=== PATIENT | female | born 1955 | race African-American/Black ===

== ENCOUNTER 2020-01-10 20:30 | Observation (INO) | payer BC, SELFPAY ==
--- NOTE | ~2020-01-10 | XR_ITS ---
EXAMINATION: XR chest 2V DATE: 01/10/2020 21:06 INDICATION: Chest pain TECHNIQUE: PA and lateral views of the chest are obtained. COMPARISON: 08/11/2018 FINDINGS: The lungs are free of acute opacities. There is no pleural effusion or pneumothorax. The ca rdiomediastinal silhouette is normal. There is mild thoracic spondylosis. IMPRESSION: 1. No acute cardiopulmonary abnormality. Reviewed, dictated and finalized at location A. TBAND PERFORATOR
--- NOTE | ~2020-01-10 | CT_ITS ---
EXAMINATION: CTA chest PE protocol DATE: 01/10/2020 21:34 INDICATION: Chest pain TECHNIQUE: Computed tomography angiography (CTA) of the chest was performed with 100 mL Omnipaque-350 intravenous contrast timed to evaluate the pulmonary arteries. Coronal maximum intensity projection 3D-reconstructions were created by the technologist. The dose-length product (DLP) was 775.83 mGy-cm. Automated exposure control and iterative reconstruction technique were employed. COMPARISON: None. FINDINGS: The pulmonary arteries are well-opacified. No pulmonary embolism is identified. There is e levation of the right hemidiaphragm. Mild dependent atelectasis is noted. There are no focal airspace opacities. No pneumothorax is identified. There is a trace left pleural effusion. No pathologically enlarged thoracic lymph nodes are identified. The heart size is normal. Calcified mediastinal and lef t hilar lymph nodes are consistent with old granulomatous disease. There is moderate thoracic spondyl osis. IMPRESSION: 1. No pulmonary embolism. 2. Mild atelectasis. Reviewed, dictated and finalized at location A. ANALYTICS CHIEF SCIENTIST
[2020-01-10 20:37] VITALS: BP 156/88; PULSE 96; RESP 14; TEMP 36.4; O2SAT 98
--- NOTE | 2020-01-10 20:37 | ED.CHESTPAIN ---
HPI - Chest Pain General Chief Complaint: Chest Pain Stated Complaint: CP and discomfort Time Seen by Provider: 01/10/20 20:37 Source: patient and RN notes reviewed Mode of arrival: ambulatory Limitations: no limitations History of Present Illness HPI narrative: Pt is a 64 y/o female presenting to the ED c/o CP. Pt reports she started experiencing lt sided CP 2 hrs ago. Pt states the pain is present at rest but is worsened with movement to the left, and notes it is non-radiating. Pt states she has a residual cough from being sick a few weeks ago, but denies SOB, N/V, back pain, or ABD pain. Pt states she has a Hx of HTN and notes she sees Dr. Hill as her PCP. Pt reports she has never been a smoker, and denies a premature family history of heart disease. Pertinent past history: other (None) Onset (ago): hour(s) (2) Pain location: left chest Exacerbating factors: movement (to the lt side) Associated symptoms: cough Related Data Home Medications Medication Instructions Recorded Confirmed amlodipine 5 mg tablet 5 mg PO DAILY 10/09/19 hydrochlorothiazide 25 mg tablet 25 mg PO DAILY 10/09/19 ibuprofen 600 mg tablet 600 mg PO TID 10/09/19 aspirin 01/10/20 Allergies Allergy/AdvReac Type Severity Reaction Status Date / Time No Known Allergies Allergy Unverified 10/09/19 15:54 Review of Systems Review of Systems: All systems reviewed & are unremarkable except as noted in HPI and below Cardiovascular: Cardiovascular: Reports chest pain (Lt sided) Respiratory: Respiratory: Reports cough and Reports dyspnea Gastrointestinal: Gastrointestinal: Denies abdominal pain, Denies nausea and Denies vomiting Musculoskeletal: Musculoskeletal: Denies back pain [facility] Past Medical History Medical History Bilateral primary osteoarthritis of knee HTN (hypertension) Surgical History Surgical History Status post right knee replacement Family History Family History Mother Hypertension Social History Social History Smoking status: Never smoker Smoking end date: 11/18/83 Alcohol intake: never Substance use: never Exam Const: General: cooperative, no acute distress and alert Nutritional Appearance: obese Orientation/consciousness: patient oriented x3 Limitations: no limitations HENMT: Mouth: Yes lip normal Chest: Chest palpation & inspection: no tenderness Resp: Effort & Inspection: normal respiratory effort Auscultation: clear to auscultation bilaterally Cardio: Rate: regular rate Rhythm: regular rhythm Peripheral pulses: dorsalis pedis present (2+) GI: GI Palp: Yes Soft to palpation and No Tenderness to palpation present (GI) Skin: General skin exam: normal color Neuro: General: patient oriented x3 Cognition (Neuro): normal cognition Speech: normal speech Extrem: General: normal to inspection, full ROM and edema (Trace pedal) Psych: Mental Status: mental status grossly normal Affect: normal affect Attitude: cooperative Course Course Emergency Course: Patient with atypical chest pain. Heart score 4. Patient will be placed in observation to assistant plant manager and the chest pain center for further evaluation. Consultations Consultation #1: Discussed case with Dr. Harrington who will accept patient as a chest pain center admission. Date: 01/10/20 Time: 23:30 Vital Signs Vital signs: Vital Signs Temperature 97.6 F 01/10/20 20:37 Pulse Rate 96 01/10/20 20:37 Respiratory Rate 14 01/10/20 20:37 Blood Pressure 156/88 H 01/10/20 20:37 Pulse Oximetry 98 01/10/20 20:37 Temperature 97.6 F 01/10/20 20:37 Pulse Rate 79 01/10/20 22:20 Respiratory Rate 22 H 01/10/20 22:20 Blood Pressure 124/69 01/10/20 22:20 Pulse Oximetry 98 01/10/20 22:20 MDM - Chest Pain Lab Data Attestation: I reviewed
[2020-01-10 20:41] VITALS: PULSE 87; O2SAT 98
--- NOTE | 2020-01-10 20:44 | ECG_ITS ---
Measurements Intervals [place] Rate: 91 P: 55 [place]: 138 QRS: -11 QRSD: 104 T: 61 QT: 319 QTc: 393 Interpretive Statements SINUS RHYTHM VOLTAGE CRITERIA FOR LVH BASELINE ARTIFACT- V2 BORDERLINE ECG Electronically Signed On 01-11-2020 6:50:30 CONSULTING SALES MANAGER by Camden Benítez D.O.
[2020-01-10 20:46] VITALS: BP 149/73; PULSE 91; RESP 20; O2SAT 95
[2020-01-10 20:55] LABS: Basophils Absolute Auto 0.1 K/mm3 (0.0-0.1); Basophils Percent Auto 0.7 % (0.2-1.2); Eosinophils Absolute Auto 0.2 K/mm3 (0-0.3); Hematocrit 43.5 % (37.0-47.0); Immature Granulocyte Absolute 0.01 K/mm3 (0.00-0.031); Immature Granulocyte Percent A 0.1 % (0-0.5); Lymphocytes Absolute Auto 2.01 K/mm3 (0.9-3.2); Lymphocytes Percent Auto 29.7 % (18.3-44.2); Mean Corpuscular HGB Conc 32.2 g/dl (32-36); Mean Corpuscular Hemoglobin 28.2 pg (26-34); Mean Corpuscular Volume 87.7 fl (80-100); Mean Platelet Volume 10.9 fl (7.4-10.4); Monocytes Absolute Auto 0.7 K/mm3 (0.1-0.6); Monocytes Percent Auto 10.8 % (2.6-8.5); Neutrophils Absolute Auto 3.8 K/mm3 (1.3-6.7); Neutrophils Percent Auto 55.7 % (45.5-73.1); Platelet Count Result 271 k/mm3 (150-375); Red Blood Count 4.96 M/mm3 (4.2-5.4); Red Cell Distribution Width 13.8 % (11.5-14.5); White Blood Count 6.8 K/mm3 (4.5-10.0)
[2020-01-10 21:05] LABS: INR 0.9; Prothrombin Time 12.3 Seconds (11.1-14.7)
[2020-01-10 21:06] LABS: Partial Thromboplastin Time 28.2 SECONDS (22.3-36.8)
[2020-01-10 21:07] LABS: Alanine Aminotransferase 18 U/L (4-35); Alkaline Phosphatase 61 U/L (38-126); Aspartate Amino Transferase 21 U/L (14-36); Bilirubin,Total 0.3 mg/dL (0.2-1.3); Blood Urea Nitrogen 11 mg/dL (7-17); Carbon Dioxide 33 mmol/L (22-30); Chloride 100 mmol/L (98-107); Estimated CRCL calculation 74 ml/min; Estimated Glomerular Filt Rate > 60; Glucose 94 mg/dL (65-105); Potassium 3.8 mmol/L (3.4-5.0); Sodium 141 mmol/L (137-145)
[2020-01-10] MEDS: NITROGLYCERIN OINTMENT 1 INCH DOSE TRANSDERM (21:09)
[2020-01-10] MEDS: ASPIRIN 81 MG CHEWABLE TABLET 324 MG PO (21:09)
[2020-01-10 21:14] LABS: D Dimer 0.79 ug/mL (<0.48)
[2020-01-10 21:19] LABS: Troponin I < 0.012 ng/mL (0.000-0.034)
[2020-01-10 22:20] VITALS: BP 124/69; PULSE 79; RESP 22; O2SAT 98
[2020-01-10 23:38] LABS: Troponin I < 0.012 ng/mL (0.000-0.034)
[2020-01-10] MEDS: KETOROLAC 15 MG/ML VIAL (*BKC) IV PUSH (23:39)
[2020-01-10 23:42] VITALS: BP 153/72; PULSE 79; RESP 16; O2SAT 98
[2020-01-11] VITALS (8 sets, daily range): BP systolic 124–174; BP diastolic 76–98; PULSE 72–87; RESP 16–20; TEMP 36.2–36.4; O2SAT 94–98; BMI 43.4
[2020-01-11 00:14] LABS: Cholesterol 183 mg/dL (0-200); HDL Direct 54 mg/dL; Triglycerides 94 mg/dL (<150)
[2020-01-11 00:25] LABS: LDL Cholesterol Direct 99 mg/dL
--- NOTE | 2020-01-11 01:07 | ADMGEN ---
This patient, Obi Kennedy, was admitted to IMU Room 205-02. Patient/family oriented to hospital policies and general routines including ID bracelet, bed and alarms, visiting hours, pain management, procedures, bathroom and other care routines, personal items, smoking policy, room service/diet, and visiting hours. Valuables list has been completed. Information on how to activate the Rapid Response Team has been discussed. Patient/Family are encouraged to report perceived risks to care and to ask questions if they do not understand what they are told or what they should do.
[2020-01-11 03:13] LABS: Troponin I < 0.012 ng/mL (0.000-0.034)
--- NOTE | 2020-01-11 05:32 | ECG_ITS ---
Measurements Intervals [place] Rate: 80 P: 56 MA: 149 QRS: -1 QRSD: 102 T: 53 QT: 362 QTc: 418 Interpretive Statements SINUS RHYTHM MINIMAL Q WAVES- LATERAL LEADS BASELINE ARTIFACT- I, II, III, AVL, AVF BORDERLINE ECG Electronically Signed On 01-11-2020 7:48:54 RECOATING MACHINE OPERATOR by Camden Benítez D.O.
[2020-01-11] MEDS: ASPIRIN 81 MG CHEWABLE TABLET PO (08:47)
--- NOTE | 2020-01-11 09:24 | PM.CNCAR ---
Assessment and Plan Assessment and plan (1) Chest pain: Code(s): R07.9 - Chest pain, unspecified Status: Acute Assessment and Plan: Her chest pain characteristics are atypical for angina and consistent with musculoskeletal pain (worse with turning head and moving) likely due to excessive coughing with her recent URI. She has ruled out for [place] with Troponin that has been negative X3 and EKG She would benefit from stress testing for risk stratification given her multiple cardiovascular risk factors. Would arrange for that to be done in outpatient settings. She would also benefit from 2D echo to further assess LVH noted on EKG. That also to be arranged as outpatient. Pt is stable for discharge from cardiac standpoint and is agreeable to proceed with further work up as outpatient. Follow up will be arranged within a week post discharge (2) Hypertension: Code(s): I10 - Essential (primary) hypertension Status: Acute Assessment and Plan: Well controlled Continue her current dose of HCTZ and Amlodipine History of Present Illness History of Present Illness Consult date/time: 01/11/20 09:24 64 y/o female with h/o HTN, osteoarthritis s/p knee replacement who presented with chest pain. She reports upper respiratory/flu like symptoms for few weeks that was improving except for residual cough. Yesterday she developed sharp left sided chest pain that would only hurt if she turns her head or move specific way. Pain has resolved now. She denies dyspnea, lighthheadedness or dizziness. No prior cardiac history of cardiac work up in the past Her EKG on 01/10/20 and 01/11/20 both show sinus rhythm with LVH however no ischemic changes. Her troponin has been negative X3. Never smoker. Reason For Visit: Chest Pain Review of Systems Review of Systems: All systems reviewed & are unremarkable except as noted in HPI and below Constitutional: Constitutional: Denies fatigue and Denies headache(s) Eyes: Eyes: Denies blurry vision ENT: Reports Normal hearing present and Denies headache(s) Cardiovascular: Cardiovascular: Denies chest pain, Denies diaphoresis, Denies pedal edema, Denies leg edema, Denies lightheadedness, Denies palpitations and Denies dyspnea Respiratory: Respiratory: Denies cough and Denies dyspnea Gastrointestinal: Gastrointestinal: Denies abdominal pain Musculoskeletal: Musculoskeletal: Denies back pain Neurologic: Reports Normal hearing present and Denies headache(s) Psychiatric: Psychiatric: Denies anxiety Endocrine: Endocrine: Denies fatigue and Denies palpitations PMFSH Past Medical History Medical History Bilateral primary osteoarthritis of knee HTN (hypertension) Surgical History Surgical History Status post right knee replacement Family History Family History Mother Hypertension Social History Social History Smoking status: Never smoker Smoking end date: 11/18/83 Alcohol intake: never Substance use: never Substance use type: does not use Spiritual care concerns: No Meds Home Medications and Allergies Home Medications Medication Instructions Recorded Confirmed Type amlodipine 5 mg tablet 5 mg PO DAILY 10/09/19 01/11/20 History hydrochlorothiazide 25 mg tablet 25 mg PO DAILY 10/09/19 01/11/20 History ibuprofen 600 mg tablet 600 mg PO TID PRN 10/09/19 01/11/20 History aspirin 81 mg PO DAILY 01/10/20 01/11/20 History Allergies Allergy/AdvReac Type Severity Reaction Status Date / Time No Known Allergies Allergy Unverified 10/09/19 15:54 Vital Signs Vital Signs - 24 hr 01/10/20 20:37 01/10/20 20:41 01/10/20 20:46 Temperature 36.4 C Pulse Rate 96 87 91 Respiratory Rate 14 20 Blood Pressure 156/88 H 149/73 H Pulse O
--- NOTE | 2020-01-11 10:28 | PM.IMHP ---
H&P: HPI History of Present Illness Chief complaint: Chest Pain Narrative: Please refer to consult note interred by me earlier. Pt presented with chest pain, rule out for [place], being discharged in stable condition. Will arrange for stress test and 2D echo in outpatient settings. Review of Systems Review of Systems: All systems reviewed & are unremarkable except as noted in HPI and below Constitutional: Constitutional: Denies fatigue and Denies headache(s) Eyes: Eyes: Denies blurry vision ENT: Reports Normal hearing present and Denies headache(s) Cardiovascular: Cardiovascular: Denies chest pain, Denies diaphoresis, Denies pedal edema, Denies leg edema, Denies lightheadedness, Denies palpitations and Denies dyspnea Respiratory: Respiratory: Denies cough and Denies dyspnea Gastrointestinal: Gastrointestinal: Denies abdominal pain Musculoskeletal: Musculoskeletal: Denies back pain Neurologic: Reports Normal hearing present and Denies headache(s) Psychiatric: Psychiatric: Denies anxiety Endocrine: Endocrine: Denies fatigue and Denies palpitations PMFSH Past Medical History Medical History (Updated 01/11/20 @ 09:33 by Monique Forbes MD) Bilateral primary osteoarthritis of knee HTN (hypertension) Hypertension Surgical History Surgical History Status post right knee replacement Family History Family History Mother Hypertension Social History Social History Smoking status: Never smoker Smoking end date: 11/18/83 Alcohol intake: never Substance use: never Substance use type: does not use Spiritual care concerns: No Meds Home Medications and Allergies Home Medications Medication Instructions Recorded Confirmed Type amlodipine 5 mg tablet 5 mg PO DAILY 10/09/19 01/11/20 History hydrochlorothiazide 25 mg tablet 25 mg PO DAILY 10/09/19 01/11/20 History ibuprofen 600 mg tablet 600 mg PO TID PRN 10/09/19 01/11/20 History aspirin 81 mg PO DAILY 01/10/20 01/11/20 History Allergies Allergy/AdvReac Type Severity Reaction Status Date / Time No Known Allergies Allergy Unverified 10/09/19 15:54 Vital Signs Vital Signs - 24 hr 01/10/20 20:37 01/10/20 20:41 01/10/20 20:46 Temperature 36.4 C Pulse Rate 96 87 91 Respiratory Rate 14 20 Blood Pressure 156/88 H 149/73 H Pulse Oximetry 98 98 95 01/10/20 22:20 01/10/20 23:42 01/11/20 00:10 Temperature 36.4 C Pulse Rate 79 79 78 Respiratory Rate 22 H 16 20 Blood Pressure 124/69 153/72 H 124/98 H Pulse Oximetry 98 98 98 01/11/20 01:28 01/11/20 02:00 01/11/20 03:39 Temperature Pulse Rate 76 74 76 Respiratory Rate 20 Blood Pressure Pulse Oximetry 98 01/11/20 03:58 01/11/20 05:43 01/11/20 08:00 Temperature 36.2 C L 36.4 C L Pulse Rate 79 74 72 Respiratory Rate 18 16 Blood Pressure 174/76 H 154/83 H Pulse Oximetry 94 97 01/11/20 10:00 Temperature Pulse Rate 87 Respiratory Rate Blood Pressure Pulse Oximetry Exam Const: General: no acute distress Eyes: Sclera: sclerae normal Neck: Neck: no JVD Carotids: no bruits Resp: Effort & Inspection: normal respiratory effort Auscultation: clear to auscultation bilaterally Cardio: Rate: regular rate and not tachycardic Rhythm: regular rhythm Heart sounds: no gallops, no murmurs and no rubs GI: GI Palp: Yes Soft to palpation and No Tenderness to palpation present (GI) Skin: General skin exam: normal color Neuro: Cranial nerves: Yes Normal hearing present Speech: normal speech Extrem: General: normal to inspection and no edema Psych: Affect: normal affect H&P: Results Labs Labs: Short CBC 01/10/20 Range/Units 20:50 WBC 6.8 (4.5-10.0) K/mm3 Hgb 14.0 (12.0-15.0) g/dL Hct 43.5 (37.0-47.0) % Plt Count 271 (150-375) k/mm3 [facility] 01/10/20 20:50 S
--- NOTE | 2020-01-14 13:40 | PM.DS ---
DS: Diagnosis Admitting Diagnosis Admitting Diagnosis: Chest pain, unspecified Discharge Diagnosis (1) Chest pain: Code(s): R07.9 - Chest pain, unspecified Status: Acute Assessment and Plan: Her chest pain characteristics are atypical for angina and consistent with musculoskeletal pain (worse with turning head and moving) likely due to excessive coughing with her recent URI. She has ruled out for [place] with Troponin that has been negative X3 and EKG She would benefit from stress testing for risk stratification given her multiple cardiovascular risk factors. Would arrange for that to be done in outpatient settings. She would also benefit from 2D echo to further assess LVH noted on EKG. That also to be arranged as outpatient. Pt is stable for discharge from cardiac standpoint and is agreeable to proceed with further work up as outpatient. Follow up will be arranged within a week post discharge (2) Hypertension: Code(s): I10 - Essential (primary) hypertension Status: Acute Assessment and Plan: Well controlled Continue her current dose of HCTZ and Amlodipine DS: Summary Time Spent with Patient Time attestation: 64 y/o female with h/o HTN, osteoarthritis s/p knee replacement who presented with chest pain. She reports upper respiratory/flu like symptoms for few weeks that was improving except for residual cough. Yesterday she developed sharp left sided chest pain that would only hurt if she turns her head or move specific way. Pain has resolved now. She denies dyspnea, lighthheadedness or dizziness. No prior cardiac history of cardiac work up in the past Her EKG on 01/10/20 and 01/11/20 both show sinus rhythm with LVH however no ischemic changes. Her troponin has been negative X3. Never smoker. Her chest pain characteristics are atypical for angina and consistent with musculoskeletal pain (worse with turning head and moving) likely due to excessive coughing with her recent URI. She has ruled out for [place] with Troponin that has been negative X3 and EKG She would benefit from stress testing for risk stratification given her multiple cardiovascular risk factors. Would arrange for that to be done in outpatient settings. She would also benefit from 2D echo to further assess LVH noted on EKG. That also to be arranged as outpatient. Pt is stable for discharge from cardiac standpoint and is agreeable to proceed with further work up as outpatient. Follow up will be arranged within a week post discharge Total time spent providing and/or coordinating discharge services: Exam Const: General: no acute distress Eyes: Sclera: sclerae normal Neck: Neck: no JVD Carotids: no bruits Resp: Effort & Inspection: normal respiratory effort Auscultation: clear to auscultation bilaterally Cardio: Rate: regular rate and not tachycardic Rhythm: regular rhythm Heart sounds: no gallops, no murmurs and no rubs Skin: General skin exam: normal color Neuro: Cranial nerves: Yes Normal hearing present Speech: normal speech Extrem: General: normal to inspection and no edema Psych: Affect: normal affect Discharge Plan Discharge Attending physician on discharge: Monique Forbes Consulting providers: Ihsan Hawk ; Camden Benítez Discharging Clinician: Monique Forbes Patient Disposition: Home, Self-Care Activity: unlimited Diet: heart healthy Patient Instructions: Chest Pain (DC) Stand Alone Forms: General Discharge Information Follow-up/Referrals: David Harrington MD [Physician] - (You will be called with appointment ) Discharge Medications: Continued hydrochlorothiazide 25 mg tablet 25 mg PO DAILY RF: 0 amlodipine 5 mg tablet 5 mg PO DAILY RF: 0 ibuprofen 600 mg tablet 600 mg PO TID PRN (Reason: Pain) RF: 0 aspirin 81 mg Tablet,Chewable 81 mg PO DAILY RF: 0 Date of admission: 01/10/20 23:32 Primary Care Provider: Jay Hill Admitting Provider: Alber
== END 2020-01-11 10:53 | disposition home or self-care (01) ==
LOC: ANHED 23:37 → ANHIMU 23:48
PROVIDERS: Admitting Provider Specialist; Emergency Provider Emergency Medicine; PCP Family Medicine; Visit Provider Internal Medicine
DX: R07.9 Chest pain, unspecified (principal); I10 Essential (primary) hypertension; Z79.82 Long term (current) use of aspirin; Z79.899 Other long term (current) drug therapy; Z96.651 Presence of right artificial knee joint
CPT/HCPCS: 36415; 71046; 71275; 80053; 80061; 84484; 85025; 85380; 85610; 85730; 93005; 96374; 99285; A9270; G0378; J1885; Q9967

== ENCOUNTER 2021-03-29 12:12 | Outpatient (CLI) | payer BC, SELFPAY ==
--- NOTE | ~2021-03-29 | MM_ITS ---
EXAMINATION: MM screening [facility] w sam[facility] HISTORY: Screening mammogram TECHNIQUE: Craniocaudal and mediolateral oblique 3-D tomosynthesis images were obtained and synthetic 2-D images were generated. CAD analysis was submitted and interpreted. COMPARISON: 08/11/2018, 02/19/2017, 10/01/2013, 09/25/2013 BREAST PARENCHYMAL COMPOSITION: The breasts are almost entirely fatty. FINDINGS: There is no evidence of suspicious mass, calcification, or architectural distortion to sugg est malignancy in either breast. There has been no suspicious interval change. IMPRESSION: 1. No mammographic evidence of malignancy. 2. Recommend routine screening mammography in one year. BI-RADS Category 1: Negative Reviewed, dictated and finalized at location A.
== END 2021-03-29 12:13 | disposition home or self-care (01) ==
LOC: ANHIMG 12:14
PROVIDERS: PCP Family Medicine; Visit Provider Family Medicine
DX: Z12.31 Encounter for screening mammogram for malignant neoplasm of breast (principal)
CPT/HCPCS: 77063; 77067

== ENCOUNTER → 2021-09-19 13:44 | Outpatient (CLI) | payer BC, SELFPAY ==
--- NOTE | ~2021-09-19 | XR_ITS ---
XR chest 2V DATE: 09/19/2021 14:23 INDICATION: Chest pain TECHNIQUE: 2 views COMPARISON: 01/10/2022 view chest 01/10/2020 CT pulmonary scan FINDINGS: There is moderately prominent elevation right leaf of the diaphragm and likely chronic atel ectasis at the right lung base. The lungs otherwise appear clear. Normal heart size. Mild aortic unfolding. No hilar or mediastinal enlargement. IMPRESSION: Chronic moderate elevation right leaf of the diaphragm and associated chronic atelectasis at the right lung base Reviewed, dictated and finalized at location A. IMPRESSION: Chronic moderate elevation right leaf of the diaphragm and associat ed chronic atelectasis at the right lung base
== END ==
PROVIDERS: PCP Family Medicine; Visit Provider Family Medicine
DX: R07.9 Chest pain, unspecified (principal); R91.8 Other nonspecific abnormal finding of lung field
CPT/HCPCS: 71046

== ENCOUNTER 2022-05-08 16:24 | Emergency (ER) | payer OTHER, MEDICARE, SELFPAY ==
--- NOTE | ~2022-05-08 | XR_ITS ---
EXAM: XR ankle RT 2V DATE: 05/08/2022 19:14 HISTORY: fall, pain . COMPARISON: None available. FINDINGS: Normal mineralization. No fracture or dislocation. No lytic or blastic lesion. Minimal Ach illes and plantar enthesopathy. Mild degenerative change at the tibiotalar joint.. No erosion or baltazar osteal change. Ankle soft tissue swelling. IMPRESSION: No acute osseous finding in the right ankle. Reviewed, dictated and finalized at location K.
--- NOTE | ~2022-05-08 | XR_ITS ---
EXAM: XR elbow RT 2V DATE: 05/08/2022 19:14 HISTORY: fall, pain . COMPARISON: 03/16/2018. FINDINGS: Normal mineralization. No fracture or dislocation. No lytic or blastic lesion. Joint space s are maintained. No erosion or periosteal change. Soft tissues within normal limits. IMPRESSION: No acute osseous finding in the right elbow. Reviewed, dictated and finalized at location K.
--- NOTE | ~2022-05-08 | XR_ITS ---
EXAM: XR hip RT min 2V DATE: 05/08/2022 19:14 HISTORY: FALL, PAIN . COMPARISON: None available. FINDINGS: Normal mineralization. No fracture or dislocation. No lytic or blastic lesion. Moderate ar thritic change in the right hip. Degenerative changes also noted in the lower lumbar spine, right SI joint, and pubic symphysis. No erosion or periosteal change. Soft tissues within normal limits. IMPRESSION: No acute osseous finding in the right hip. Reviewed, dictated and finalized at location K.
--- NOTE | ~2022-05-08 | XR_ITS ---
EXAM: XR shoulder RT min 2V DATE: 05/08/2022 19:14 HISTORY: pain, fall . COMPARISON: None available. FINDINGS: Normal mineralization. No fracture or dislocation. No lytic or blastic lesion. Degenerativ e glenohumeral and AC joint change. No erosion or periosteal change. Soft tissues within normal limit s. IMPRESSION: No acute osseous finding in the right shoulder. Reviewed, dictated and finalized at location K.
--- NOTE | ~2022-05-08 | XR_ITS ---
EXAM: XR knee RT 2V DATE: 05/08/2022 19:14 HISTORY: fall, pain . COMPARISON: 07/31/2017. FINDINGS: Periarticular mineralization. Right total knee arthroplasty without hardware fracture or a bnormal perihardware lucency. No fracture or dislocation. No lytic or blastic lesion. Joint spaces ar e maintained. No erosion or periosteal change. Soft tissues within normal limits. Moderate volume rig ht knee joint effusion. IMPRESSION: No acute osseous finding in the right knee. Reviewed, dictated and finalized at location K.
[2022-05-08 16:27] VITALS: BP 151/94; PULSE 93; RESP 16; TEMP 37.1; O2SAT 100
--- NOTE | 2022-05-08 18:46 | ED.FALL ---
HPI - Fall General Chief Complaint: Fall Stated Complaint: fall, right side pain Time Seen by Provider: 05/08/22 18:38 History of Present Illness HPI Narrative: Patient is a 66-year-old female who presents for evaluation after a fall today. Patient states that she was walking the grocery store when she slipped on a substance on the ground and landed on her right side. She did not hit her head or lose consciousness. She has been ambulatory since the incident. She is currently complaining of right-sided pain along her arm and leg, most notably at her hip, knee, elbow, shoulder and ankle. Patient has not taken any medications for his pain. States that she was in her usual state of health this morning. Related Data Home Medications Medication Instructions Recorded Confirmed ibuprofen 600 mg tablet 600 mg PO TID PRN Pain 10/09/19 09/19/21 aspirin 81 mg chewable tablet 81 mg PO DAILY 01/10/20 09/19/21 Allergies Allergy/AdvReac Type Severity Reaction Status Date / Time No Known Allergies Allergy Unverified 09/19/21 12:59 Review of Systems Review of Systems: Gen: Denies fevers or chills Eyes: Denies eye pain or visual change ENT: Denies congestion Respiratory: Denies shortness of breath or cough CV: Denies chest pain or palpitations GI: Denies abdominal pain nausea, emesis or diarrhea denies burning, urgency, frequency or hematuria Musculoskeletal: Reports right hip, knee, ankle pain and right elbow pain. Neuro: Denies numbness, tingling, weakness or focal weakness Skin: Denies rash Except as documented, all other systems reviewed and negative [facility] Past Medical History Medical History Bilateral primary osteoarthritis of knee HTN (hypertension) Hypertension Surgical History Surgical History Status post right knee replacement Family History Family History Mother Hypertension Social History Social History Smoking status: Never smoker Second hand tobacco smoke exposure: No Alcohol intake: current Alcohol use details: rare Substance use: never Substance use type: does not use Gender identity (if verbalized by the patient): Female Spiritual care concerns: No Exam Narrative: APPEARANCE: No acute distress, nontoxic, resting in bed EYES: EOMI HEENT: Normocephalic, atraumatic, OMM RESPIRATORY: No respiratory distress Clear to auscultation bilaterally with no rhonchi wheezing or rales. CARDIOVASCULAR: 2+ DP and PT pulses bilaterally. Regular rate and rhythm without murmurs rubs or gallops. ABDOMINAL: Soft, nontender, nondistended, no rebound or guarding MUSCULOSKELETAl: Tender to palpation over right hip, right knee, and right lateral malleolus. No tenderness to palpation along tibia or fibula or bones in the foot. Full range of motion in right hip, right knee, right foot and toes. Tender to palpation along the right olecranon. No tenderness to palpation along carpal bones, no snuffbox tenderness. full range of motion in right shoulder, elbow, hand, and fingers. Weightbearing. Neurovascular intact distally to all areas of pain. NEURO: Awake and alert. Following commands, speech normal, no focal deficits SKIN: Warm, dry. No rashes lesions or abrasions PSYCHIATRIC: Normal affect/mood, Course Vital Signs Vital signs: Vital Signs Temperature 98.7 F 05/08/22 16:27 Pulse Rate 93 05/08/22 16:27 Respiratory Rate 16 05/08/22 16:27 Blood Pressure 151/94 H 05/08/22 16:27 Pulse Oximetry 100 05/08/22 16:27 Oxygen Delivery Room Air 05/08/22 16:27 Temperature 97.6 F 05/08/22 19:57 Pulse Rate 78 05/08/22 19:57 Respiratory Rate 16 05/08/22 19:57 Blood Pressure 136/79 05/08/22 19:57 Pulse Oximetry 97 05/08/22 19:57 Oxygen Delivery Room A
[2022-05-08] MEDS: ACETAMINOPHEN 325 MG TABLET 650 MG PO (19:17)
[2022-05-08] MEDS: IBUPROFEN 600 MG TABLET PO (19:17)
[2022-05-08 19:57] VITALS: BP 136/79; PULSE 78; RESP 16; TEMP 36.4; O2SAT 97
== END 2022-05-08 19:58 | disposition home or self-care (01) ==
PROVIDERS: Emergency Provider Emergency Medicine
DX: S79.911A Unspecified injury of right hip, initial encounter (principal); S89.91XA Unspecified injury of right lower leg, initial encounter; S59.901A Unspecified injury of right elbow, initial encounter; S49.91XA Unspecified injury of right shoulder and upper arm, initial encounter; S99.911A Unspecified injury of right ankle, initial encounter; I10 Essential (primary) hypertension; M17.10 Unilateral primary osteoarthritis, unspecified knee; W01.0XXA Fall on same level from slipping, tripping and stumbling without subsequent striking against object, initial encounter
CPT/HCPCS: 73030; 73070; 73502; 73560; 73600; 99284; A9270

== ENCOUNTER 2022-10-24 12:45 | Outpatient (CLI) | payer MEDICARE, SELFPAY ==
--- NOTE | ~2022-10-24 | MM_ITS ---
EXAMINATION: MM screening [facility] BI w samreen HISTORY: Screening mammogram TECHNIQUE: Craniocaudal and mediolateral oblique 3-D tomosynthesis images were obtained and synthetic 2-D images were generated. CAD analysis was submitted and interpreted. COMPARISON: 03/29/2021, 08/11/2018 BREAST PARENCHYMAL COMPOSITION: The breasts are almost entirely fatty. FINDINGS: No suspicious mass, calcification, or architectural distortion are identified in either raad ast to suggest malignancy. There has been no suspicious interval change. IMPRESSION: 1. No mammographic evidence of malignancy. 2. Recommend routine screening mammography in one year. BI-RADS Category 1: Negative Reviewed, dictated and finalized at location A. 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
== END 2022-10-24 12:46 | disposition home or self-care (01) ==
LOC: ANHIMG 12:50
PROVIDERS: PCP Internal Medicine
DX: Z12.31 Encounter for screening mammogram for malignant neoplasm of breast (principal)
CPT/HCPCS: 77063; 77067

== ENCOUNTER 2023-06-10 11:21 | Outpatient (CLI) | payer MEDICARE, SELFPAY ==
--- NOTE | ~2023-06-10 | XR_ITS ---
XR chest 2V 06/10/2023 11:53 Indication: Chronic cough Procedure: 2 view chest Comparison: Comparison to multiple prior studies sequentially, with oldest reviewed study dated 08/18. Findings: Heart size normal. Left perihilar and right basilar infiltrates. Elevated right diaphragm. No significant effusion. No pneumothorax. Impression: 1: Left perihilar and right basilar infiltrates which may represent atelectasis and/or pneumonia. 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 Reviewed, dictated and finalized at location A. Impression: 1: Left perihilar and right basilar infiltrates which may represent atelectasis and/or pneumonia. 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
== END 2023-06-10 11:22 | disposition home or self-care (01) ==
DX: R05.9 Cough, unspecified (principal); J18.9 Pneumonia, unspecified organism
CPT/HCPCS: 71046

== ENCOUNTER 2023-06-17 12:46 | Outpatient (CLI) | payer MEDICARE, SELFPAY ==
--- NOTE | ~2023-06-17 | US_ITS ---
EXAMINATION: US venous doppler [facility] DATE: 06/17/2023 14:17 INDICATION: Lower limb edema. TECHNIQUE: Grayscale ultrasound images without and with compression and Doppler ultrasound images of the bilateral lower extremity veins were obtained. COMPARISON: None. FINDINGS: The visualized portions of right common femoral vein, profunda (deep) femoral vein, femoral vein, pop liteal vein, peroneal veins, posterior tibial veins, and greater saphenous vein outflow are patent. The visualized portions of left common femoral vein, profunda femoral vein, femoral vein, popliteal v ein, peroneal veins, posterior tibial veins, and greater saphenous vein outflow are patent. IMPRESSION: 1. No deep venous thrombosis. Reviewed, dictated and finalized at location A.
== END 2023-06-17 12:47 | disposition home or self-care (01) ==
DX: R60.9 Edema, unspecified (principal)
CPT/HCPCS: 93970

== ENCOUNTER 2023-08-16 12:40 | Outpatient (CLI) | payer MEDICARE, SELFPAY ==
--- NOTE | ~2023-08-16 | DEXA_ITS ---
Bone Density Report Name: GRACIELA PRICE Age: 67 Sex: Female Ethnicity: Black Date of : 1955 Indication: postmenopausal; screening for osteoporosis; height loss; Referring Provider: RENAN CRUMP Study: Bone densitometry was performed. Exam Date: August 16, 2023 Accession number: [id number] Bone Density: Region BMD T-score Z-score Classification AP Spine(L1-L4) 1.305 2.3 3.6 Normal Femoral Neck (Left) 0.905 0.5 1.1 Normal Total Hip (Left) 1.273 2.7 2.6 Normal Femoral Neck (Right) 0.911 0.6 1.1 Normal Total Hip (Right) 1.177 1.9 2.0 Normal Total Hip Mean 1.225 2.3 2.3 Normal World Health Organization criteria for BMD impression classify patients as: Normal (T-score at or above -1.0), Osteopenia (T-score between -1.0 and -2.5), or Osteoporosis (T-score at or below -2.5). 10-year Fracture Risk: FRAX not reported because: All T-scores for Spine Total, Hip Total, Femoral Neck at or above -1.0 Previous Exams: Region Exam Age BMD T-score BMD Change BMD Change Date g/cm2 vs Baseline vs Previous AP Spine (L1-L4) 08/16/2023 67 1.305 2.3 0.013 (1.0%) 0.013 (1.0%) 08/11/2018 62 1.292 2.2 Total Hip(Left) 08/16/2023 67 1.273 2.7 0.028 (2.2%)* 0.028 (2.2%)* 08/11/2018 62 1.245 2.5 Total Hip(Right) 08/16/2023 67 1.177 1.9 0.013 (1.1%) 0.013 (1.1%) 08/11/2018 62 1.165 1.8 *Denotes significance at 95% confidence level, LSC for AP Spine = 0.022 g/cm2, LSC for Total Hip = 0.027 g/cm2 Clinical Information Provided by Patient: Has used the following medications: Vitamin D Patient maximum height was 64 Menopause Age: 54 No regular weight bearing exercise Onset of menses at age 10 Number of children 2 Impression: The patient has normal bone mass. No significant bone loss was observed. Discussion: BONE DENSITY IS ABOVE THE MINIMUM DESIRABLE LEVEL AT ALL SKELETAL SITES TESTED. This patient?s bone mineral density is above the minimum desirable level (T-score -1.0 or better) at all sites measured. The patient should follow a healthful lifestyle (good nutrition with adequate calcium and vitamin D, and appropriate weight-bearing exercise). Follow-Up: Consider repeating this study in 5 years or sooner if there is some new clinical indication. Reported by: DAY on 08/16/2023 1:06:00 PM. Reviewed, dictated and finalized at location ABladimir MENDOAS
== END 2023-08-16 12:41 | disposition home or self-care (01) ==
LOC: ANHIMG 12:42
DX: Z78.0 Asymptomatic menopausal state (principal)
CPT/HCPCS: 77080

== ENCOUNTER 2023-10-14 23:19 | Emergency (ER) | payer MEDICARE, SELFPAY ==
--- NOTE | ~2023-10-14 | XR_ITS ---
Clinical Indication: Chest pain PA and lateral views of the chest: Comparison: 06/10/2023 Findings: The lungs are clear, without evidence of focal consolidation or pleural effusion. Stable el evation right hemidiaphragm noted. Cardiomediastinal silhouette is within normal limits. Bones and so ft tissues are unremarkable. Impression: Normal chest. Reviewed, dictated and finalized at location M. 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
--- NOTE | 2023-10-14 23:22 | ECG_ITS ---
Measurements Intervals Ethel Rate: 82 P: 52 NC: 144 QRS: -15 QRSD: 108 T: 58 QT: 342 QTc: 400 Interpretive Statements SINUS RHYTHM DELAYED PRECORDIAL R/S TRANSITION VOLTAGE CRITERIA FOR LVH BORDERLINE ECG COMPARED TO ECG 01/11/2020 07:19:33 NO SIGNIFICANT CHANGES Electronically Signed On 10-15-2023 6:42:42 OCCUPATIONAL ANALYST by Camden Benítez D.O.
[2023-10-14 23:23] VITALS: BP 150/74; PULSE 85; RESP 18; TEMP 37.1; O2SAT 99
[2023-10-14 23:40] LABS: Basophils Percent Auto 0.5 % (0.2-1.2); Eosinophils Absolute Auto 0.2 K/mm3 (0-0.3); Eosinophils Percent Auto 2.3 % (0-4.4); Hemoglobin 13.6 g/dL (12.0-15.0); Immature Granulocyte Absolute 0.01 K/mm3 (0.00-0.031); Immature Granulocyte Percent A 0.1 % (0-0.5); Lymphocytes Absolute Auto 2.16 K/mm3 (0.9-3.2); Lymphocytes Percent Auto 29.2 % (18.3-44.2); Mean Corpuscular HGB Conc 31.6 g/dl (32-36); Mean Corpuscular Hemoglobin 28.2 pg (26-34); Mean Corpuscular Volume 89.2 fl (80-100); Mean Platelet Volume 10.7 fl (7.4-10.4); Monocytes Absolute Auto 0.7 K/mm3 (0.1-0.6); Monocytes Percent Auto 8.8 % (2.6-8.5); Neutrophils Absolute Auto 4.4 K/mm3 (1.3-6.7); Neutrophils Percent Auto 59.1 % (45.5-73.1); Platelet Count Result 237 k/mm3 (150-375); Red Blood Count 4.82 M/mm3 (4.2-5.4); Red Cell Distribution Width 13.9 % (11.5-14.5); White Blood Count 7.4 K/mm3 (4.5-10.0)
[2023-10-14 23:50] LABS: Prothrombin Time 13.2 Seconds (11.1-14.7)
[2023-10-14 23:51] LABS: Partial Thromboplastin Time 28.3 SECONDS (22.3-36.8)
[2023-10-14 23:53] LABS: Alanine Aminotransferase 19 U/L (6-35); Albumin Level 4.2 g/dL (3.5-5.1); Alkaline Phosphatase 61 U/L (38-126); Anion Gap 8 mmol/L (8-16); Aspartate Amino Transferase 24 U/L (14-36); Bilirubin,Total 0.4 mg/dL (0.2-1.3); Blood Urea Nitrogen 15 mg/dL (7-17); Calcium 9.1 mg/dL (8.4-10.2); Carbon Dioxide 30 mmol/L (22-30); Chloride 102 mmol/L (98-107); Estimated CRCL calculation 69 ml/min; Estimated Glomerular Filt Rate > 60; Glucose 111 mg/dL (65-110); Lipase 90 U/L (23-300); Potassium 3.1 mmol/L (3.4-5.0); Sodium 140 mmol/L (137-145)
[2023-10-15 00:05] LABS: Troponin I < 0.012 ng/mL (0.000-0.034)
[2023-10-15 02:16] VITALS: BP 143/77; PULSE 81; RESP 18; O2SAT 98
[2023-10-15 03:26] VITALS: PULSE 79
[2023-10-15 03:27] VITALS: O2SAT 99
[2023-10-15 03:51] LABS: Troponin I < 0.012 ng/mL (0.000-0.034)
[2023-10-15 04:59] VITALS: BP 154/77; PULSE 78; RESP 20; O2SAT 98
--- NOTE | 2023-10-15 05:08 | ED.GENADULT ---
HPI - General Adult General Chief complaint: Chest Pain Stated complaint: chest pain Time Seen by Provider: 10/15/23 04:58 History of Present Illness HPI narrative: patient is a 68-year-old female who presents to emergency department with chief complaint of chest pain. Patient reports that since Saturday she has been having episodes of pain in the left anterior portion of her chest radiates to her left shoulder. Patient reports the pain is worse with movement of her left arm patient denies shortness of breath denies diaphoresis. Patient does report that several years ago she had a stress test that was negative. Related Data Home Medications Medication Instructions Recorded Confirmed ibuprofen 600 mg tablet 600 mg PO TID PRN Pain 10/09/19 09/19/21 aspirin 81 mg chewable tablet 81 mg PO DAILY 01/10/20 09/19/21 Allergies Allergy/AdvReac Type Severity Reaction Status Date / Time No Known Allergies Allergy Unverified 09/19/21 12:59 Review of Systems Review of Systems: A 10 system review of systems was completed on the patient and is negative except for what is stated in the HPI. Nursing and ancillary documentation was reviewed. [facility] Past Medical History Medical History Bilateral primary osteoarthritis of knee HTN (hypertension) Hypertension Surgical History Surgical History Status post right knee replacement Family History Family History Mother Hypertension Social History Social History Smoking status: Never smoker Second hand tobacco smoke exposure: No Alcohol intake: current Alcohol use details: rare Substance use: never Substance use type: does not use Living arrangements: with family Occupation/Education: occupation Gender identity (if verbalized by the patient): Female Spiritual care concerns: No Exam Narrative: GENERAL: Well-appearing, well-nourished, and in no acute distress. HEAD: Normocephalic, atraumatic. EYES: PERRLA and EOMI. ENT: Nares clear, no rhinorrhea or epistaxis. Mucous membranes moist. NECK: Supple. CHEST: Clear to auscultation. No respiratory distress. HEART: Regular rate and rhythm. No murmur heard. Normal peripheral pulses. ABDOMEN: Soft, nontender, nondistended, normal active bowel sounds. EXTREMITIES: Normal range of motion. No edema. SKIN: Warm, dry, no rash. NEURO: No focal deficits. Alert and oriented x3. PSYCH: Normal mood and affect. Course Vital Signs Vital signs: Vital Signs Temperature 37.1 C 10/14/23 23: Pulse Rate 85 10/14/23 23:23 Respiratory Rate 18 10/14/23 23:23 Blood Pressure 150/74 H 10/14/23 23:23 Pulse Oximetry 99 10/14/23 23:23 Oxygen Delivery Room Air 10/14/23 23:23 Temperature 37.1 C 10/14/23 23: Pulse Rate 78 10/15/23 04:59 Respiratory Rate 20 10/15/23 04:59 Blood Pressure 154/77 H 10/15/23 04:59 Pulse Oximetry 98 10/15/23 04:59 Oxygen Delivery Room Air 10/15/23 03:27 Medical Decision Making MDM Narrative Medical decision making narrative: Differential diagnosis includes ACS, non tachycardiac chest pain, chest wall pain, chest x-ray showed no focal infiltrate or pneumothorax or widened mediastinum. EKG showed sinus rhythm rate of [address] elevation or ST depression laboratory studies were obtained CBC was within normal limits electrolytes within normal limits with the exception of a potassium of 3.1 liver enzymes were normal lipase was normal troponin was less than 0.012 and a 3 hour troponin was repeated and was negative. Vital Signs Vital Signs: Vital Signs Temperature 37.1 C 10/14/23 23:23 Pulse Rate 85 10/14/23 23:23 Respiratory Rate 18 10/14/23 23:23 Blood Pressure 150/74 H
[2023-10-15 05:30] VITALS: BP 124/82; PULSE 93; RESP 20; O2SAT 99
== END 2023-10-15 05:32 | disposition home or self-care (01) ==
LOC: ANHED 10-15 05:19
PROVIDERS: Emergency Provider Emergency Medicine
DX: R07.89 Other chest pain (principal); I10 Essential (primary) hypertension; M17.0 Bilateral primary osteoarthritis of knee; Z96.651 Presence of right artificial knee joint; R94.31 Abnormal electrocardiogram [ECG] [EKG]
CPT/HCPCS: 36415; 71046; 80053; 83690; 84484; 85025; 85610; 85730; 93005; 99284

== ENCOUNTER 2025-03-08 09:10 | Outpatient (CLI) | payer MEDICARE, SELFPAY ==
--- NOTE | ~2025-03-08 | MM_ITS ---
EXAMINATION: MM screening [facility] BI w samreen HISTORY: Screening TECHNIQUE: Craniocaudal and mediolateral oblique 3-D tomosynthesis images were obtained and synthetic 2-D images were generated. CAD analysis was submitted and interpreted. COMPARISON: 10/24/2022 and dating back to 02/19/2017 BREAST PARENCHYMAL COMPOSITION: There are scattered areas of fibroglandular density. FINDINGS: Stable intramammary lymph node within the upper outer quadrant of the right breast, unchang ed dating back to 2016. Stable parenchymal pattern without suspicious microcalcifications, architectural distortion, discrete masses or significant asymmetry. IMPRESSION: 1. No mammographic evidence of malignancy. 2. Recommend routine screening mammography in one year. BI-RADS Category 2: Benign finding(s). Reviewed, dictated and finalized at location A.
--- OUTSIDE RECORDS SUMMARY | 2025-03-08 10:07 | XMS_ITS | Clinical Summary ---
Author Organization [facility] Address [address] [place] [address] Care Team Providers Care Auto Air Conditioning Apprentice Name Role Phone Unavailable Primary Care Provider Unavailabl e Source Comments [facility],non-owned Affiliates and Associated Physician Practices is amultiple site organization consisting of ambulatory clinics and hospital sitesin [place] and [place]. This disclosure is being madepursuant to the Care Everywhere program and may not contain all information available regarding this patient. Last updated 18.[facility] [employer] Social History Tobacco Use Types Packs/Day Years Used Date Smoking Tobacco: Never Assessed Comments Unknown Sex and Gender Information Value Date Recorded Sex Assigned at Not on file Legal Sex Female 3:50 PM CDT Gender Identity Not on file Sexual Orientation Not on file Plan of Treatment Health Maintenance Due Date Last Done Comments BONE DENSITY TESTING 1955 COLOGUARD (AGES 45-75) - COL ON CA SCREENING 1955 COLON MONITORING 1955 COLONOSCOPY - COLON CA SCREENING 1955 CT COLONOGRAPHY - COLON CA SCREENING 1955 Colorectal Cancer Screening 1955 FIT - COLON CA SCREENING 1955 FLEX SIG - COLON CA SCREENING 1955 LIPID TESTING 1955 MAMMOGRAM 1955 HEPATITIS C SCREENING 08/30/1972 DTAP/TDAP/TD VACCINES (1 - Tdap) 1973 PNEUMOCOCCAL VACCINE 50+ (1 of 1 - PCV) 2004 ZOSTER VACCINE (1 of 2) 2004 COVID-19 VACCINE ( - 2023-2 5 season) 2024 DEPRESSION SCREENING 11/18/2024 MEDICARE AWV CALENDAR YEAR 2024 INFLUENZA VACCINE (Season Ended) 2025 Respiratory Syncytial Virus (RSV) Vaccine Pt: or over 60 yrs (1 - 1-dose 75+ series) 2029 HEPATITIS B VACCINE Aged Out No longe r eligible based on patient's age to complete this topic HIB VACCINE Aged Out No longer eligi ble based on patient's age to complete this topic HPV VACCINE Aged Out No longer eligi ble based on patient's age to complete this topic MENINGOCOCCAL (Group B) VACC INE SHARED DECISION-MAKING Aged Out No longer eligibl e based on patient's age to complete this topic MENINGOCOCCAL GROUPS A/C/Y/W VACCINE Aged Out No longer eligible b ased on patient's age to complete this topic Insurance [employer] MEDICARE MANAGED CARE MEDICARE ADV
--- OUTSIDE RECORDS SUMMARY | 2025-03-08 10:07 | XMS_ITS | CONTINUITY OF CARE DOCUMENT ---
Author Name triciaclaribel nayeli Address Unknown Organization [facility] Address [address] [place] [address] Phone [phone] Care Team Providers Care Escrow Representative Name Role Phone Alexey RAGSDALE, Luther Unavailable THERON FIRE CONTROL OFFICER, RENAN Unavailable THERON FIRE CONTROL OFFICER, RENAN Unavailable [phone] PROBLEMS Condition Status Date Provider Notes Obesity active Luther Blackburn MD Diabetes mellitus, borderline active Luther Blackburn MD Numbness and tingling, left arm active Luciano Blackburn MD Hypertension active Luther Blackburn MD Hyperlipidemia active Luther Blackburn MD ENCOUNTERS Date Type Provider Location Encounter Diag nosis 2 - 2 In-person encounter Office Visit Luther Blackburn MD [facility] 0 - 1 In-person encounter Office Visit Luther Blackburn MD [facility] HyperlipidemiaHypertensionNumbness and tingling, left armDiabetes mellitus, borderlineObesity VITAL SIGNS Date Observation Value Provider Body Mass Index (Ratio) 40.85 kg/m2 Luciano Blackburn MD blood pressure, cuff size regular Ja rret blood pressure, diastolic 78 mm[Hg] Ja rret blood pressure, systolic 133 mm[Hg] Jar ret pulse rate 77 /min [facility] oxygen saturation, oximetry 95 % respiratory rate E&M 14 /min weight E&M 238 [lb_av] [facility] height E&M 64 [in_i] [facility]za y Body Mass Index (Ratio) 41.36 kg/m2 Luciano Blackburn MD blood pressure, diastolic 87 mm[Hg] Valeria nkLogturner blood pressure, systolic 115 mm[Hg] Toña Leeogturner respiratory rate E&M 18 /min Dena Renee yony blood pressure, cuff size regular Venkatesh villalta [place] blood pressure, diastolic 87 mm[Hg] [facility] blood pressure, systolic 115 mm[Hg] [facility] pulse rate 89 /min [facility] oxygen saturation, oximetry 96 % [facility] height E&M 64 [in_i] [facility] weight E&M 241 [lb_av] [facility] ALLERGIES Allergy Name Onset Date Reaction Criticality Status SEASONAL Low Criticality active HISTORY OF MEDICATION USE Medication Status Instructions Dates Provider Indications Com ments amlodipine 5 mg tablet active TAKE 1 TA BLET BY MOUTH EVERY DAY hydrochlorothiazide 25 mg tablet active Take 1 tablet by mouth every other day Aspirin Childrens 81 mg tablet,chewable active CHEW AND SWALLOW 1 TABLET(81 MG) BY MOUTH DAILY [facility] SOCIAL HISTORY Date Observation Value Provider personal history of marijuana use no Viridiana Ventimiglia [facility] drug use no Viridiana Ventimig genoveva [facility] alcohol use no Viridiana Ventimig genoveva [facility] smoking status Never smoker Viridiana gonzalez [facility] FAMILY HISTORY Family Member Condition Full Brother Stroke/CVA Father Alcoholism Mother Hypertension INSURANCE PROVIDERS Payer name Policy type / Coverage type [employer] red green party ID [facility] Survival MediaCOP[facility]ITALM[employer] [facility] [id number] ADVANCE DIRECTIVES Name Date DISCUSSED - NO DECISION MADE TREATMENT PLAN Date Name Performer Cardiology:weight loss encourage d. Viridiana Mann [facility] Cardiology:borderlne per patient reports w ill get updated labs from PCP Viridianacatrachito Mann [facility] Cardiology:Bp at a l 133/78 w ill continue present medication regimen H er updated medication list for this problem includes: Amlodipine 5 Mg Tablet (Amlodipine) ..... Take 1 tablet by mouth every day Aspirin Childrens 81 Mg Tablet,chewable (Aspirin) ..... Chew and swallow 1 tablet(81 mg) by mouth daily Hydrochlorothiazide 25 Mg Tablet (Hydrochlorothiazide) ..... Take 1 tablet by mouth every other day Viridianacatrachito Mann [facility] Cardiology:not on st atin w ill get recent labs from her PCP Viridianacatrachito Mann [facility] Cardiology:continues to occur. May be cervical in nature H owever, concern for ischemia given symptoms, family history of CVA and patient risk factors C T head without contrast will be ordered c arotid duplex to be obtained Viridiana Mann [facility] Cardiology Luther Blackburn MD Cardiology Luther Blackburn MD Cardiology Luther Blackburn MD Cardiology Luther Blackburn MD Cardiology:Normal st ress test and ECHO. Will check non-contrast head CT for possible old CVA. Could also be due to cervical arthritis. Luther Blackburn MD Date Name CT Head without cont rast Carotid Duplex Bilat eral Carotid Duplex Bilat eral CT Head without cont rast
--- OUTSIDE RECORDS SUMMARY | 2025-03-08 10:07 | XMS_ITS | Encounter Summary ---
Author Organization [facility] Address [address] [place] [address] Care Team Providers Care Metal Sprayer Name Role Phone Unavailable Primary Care Provider Unavailabl e Reason for Referral * Consultation (Routine) - Closed Specialty Diagnoses / Procedures Referred By Delroy t Referred To Contact Obstetrics and Gynecology Diagnoses Encounter for annual routine gynecological examination Cristel Campbell APRN-CNP [address] [place] [address] Phone: tel: fax: [facility] [address] [address] Phone: tel: fax: Referral ID Status Reason Start Date Expiration Date V isits Requested Visits Authorized [id number] Closed Specialty Services Required 10/07/2024 10/07/2025 1 1 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 Encounter Details Date Type Department Care Team (Latest Contact Info) Description 10/07/2024 Transcribe Orders [facility] - Centralized Scheduling [address] [place] [id number] Cristel Campbell APRN-CNP [address] [place], [place] [id number] Encounter for annual routine gynecological examination Social History Tobacco Use Types Packs/Day Years Used Date Smoking Tobacco: Never Assessed Comments Unknown Sex and Gender Information Value Date Recorded Sex Assigned at Not on file Legal Sex Female 3:50 PM CDT Gender Identity Not on file Sexual Orientation Not on file documented as of this encounter Plan of Treatment Scheduled Referrals Name Type Priority Associated Diagnoses Orde r Schedule AMB REFERRAL TO OB-PEDIATRIC ONCOLOGIST Outpatient Referral Routine Encounter for annual routine gynecological examination 1 Occurrences starting 10/07/2024 until 10/07/2025 documented as of this encounter Visit Diagnoses Diagnosis Encounter for annual routine gynecological examination- Primary documented in this encounter
== END 2025-03-08 09:11 | disposition home or self-care (01) ==
LOC: ANHIMG 09:12
DX: Z12.31 Encounter for screening mammogram for malignant neoplasm of breast (principal)
CPT/HCPCS: 77063; 77067